=== PATIENT | male | born 1990 | race Caucasian/White ===

== ENCOUNTER 2021-01-12 08:42 | Emergency (ER) | payer SELFPAY | END 2021-01-12 08:52 | LOC: JD.ED 08:42 | DX: Z53.21 Procedure and treatment not carried out due to patient leaving prior to being seen by health care provider (principal) ==

== ENCOUNTER 2023-08-26 10:03 | Emergency (ER) | payer OTHER ==
[2023-08-26] MEDS ORDERED: Lidocaine 1% 10 ML MDV INJECT ONE (10:23)
== END 2023-08-26 12:10 | disposition home or self-care (01) ==
LOC: JD.ED 10:03
DX: S61.211A Laceration without foreign body of left index finger without damage to nail, initial encounter (principal); W26.8XXA Contact with other sharp object(s), not elsewhere classified, initial encounter
CPT/HCPCS: 12001; 99282; J3490

== ENCOUNTER 2024-02-19 10:32 | Emergency (ER) | payer OTHER ==
[2024-02-19 11:46] LABS: BASOPHILS ABSOLUTE AUTO 0.1 K/mm3 (0.0-0.2); BASOPHILS PERCENT AUTO 0.8 % (0.0-1.0); EOSINOPHILS ABSOLUTE AUTO 0.1 K/mm3 (0.0-0.4); EOSINOPHILS PERCENT AUTO 1.1 % (0.0-6.0); HEMATOCRIT 44.4 % (42.0-52.0); HEMOGLOBIN 15.7 gm/dl (14.0-18.0); IMMATURE GRAN ABSOLUTE AUTO 0.03 K/mm3 (0.00-0.05); IMMATURE GRAN PERCENT AUTO 0.4 % (0.0-0.4); LYMPHOCYTES ABSOLUTE AUTO 1.9 K/mm3 (1.0-4.8); LYMPHOCYTES PERCENT AUTO 24.5 % (24.0-44.0); MEAN CORPUSCULAR HEMOGLOBIN 32.6 pg (28.0-32.0); MEAN CORPUSCULAR HGB CONC 35.4 g/dl (32.0-36.0); MEAN CORPUSCULAR VOLUME 92.1 fl (83.0-99.0); MEAN PLATELET VOLUME 10.8 fl (9.4-12.4); MONOCYTES ABSOLUTE AUTO 0.8 K/mm3 (0.0-0.8); MONOCYTES PERCENT AUTO 9.9 % (0.0-8.0); NEUTROPHILS PERCENT AUTO 63.3 % (41.0-71.0); PLATELET COUNT,PLT 209 K/mm3 (150-400); RED BLOOD CELL COUNT 4.82 M/mm3 (4.52-5.90); WHITE BLOOD CELL COUNT,WBC 7.88 K/mm3 (3.9-11.3)
[2024-02-19 12:13] LABS: A/G RATIO 0.9 (1-2); ALBUMIN 3.6 g/dl (3.4-5.0); BILIRUBIN TOTAL 0.4 mg/dL (0.2-1.0); BUN/CREATININE RATIO 9.1 (14-18); C-REACTIVE PROTEIN 5.36 mg/dL (<0.30); CALCIUM 9.2 mg/dL (8.5-10.1); CREATININE 1.1 mg/dL (0.7-1.3); EST CRCL DRUG DOSING (CG) 102.88 mL/min; PROTEIN TOTAL,TP 7.5 g/dl (6.4-8.2)
[2024-02-19] MEDS: Lidocaine 1% 10 ML MDV INJECT ONE (12:40)
[2024-02-19 14:49] LABS: APPEARANCE SYNOVIAL FLUID CLOUDY (CLEAR); COLOR,SYNOVIAL FLUID AMBER; RBC,SYNOVIAL FLUID 8500 cells/uL (0-0); SITE,SYNOVIAL FLUID RIGHT KNEE; VOLUME SYNOVIAL FLUID 58; WBC,SYNOVIAL FLUID 22020 cells/uL (0-200)
== END 2024-02-19 15:50 | disposition home or self-care (01) ==
LOC: JD.ED 10:32
DX: M25.461 Effusion, right knee (principal); F17.210 Nicotine dependence, cigarettes, uncomplicated
CPT/HCPCS: 20610; 36415; 73562-26-RT; 73562-RT; 80053; 84550; 85025; 85652; 86140; 87070; 87075; 87205; 89060; 99283-25; J3490